=== PATIENT | female | born 1955 | race Caucasian/White ===

== ENCOUNTER 2019-06-18 09:08 | Observation (INO) ==
--- NOTE | 2019-05-20 15:35 | PAT Medication Instructions ---
Medication Instructions Date of Service May 20, 2019 Home Medications aspirin 81 mg tablet,delayed release 81 mg PO QPM lisinopril 5 mg tablet 5 mg PO QAM metformin 1,000 mg tablet 1,000 mg PO BID propranolol 120 mg capsule,24 hr,extended release 120 mg PO QAM rosuvastatin 10 mg tablet 10 mg PO QPM glipizide 5 mg tablet 10 mg PO QAM insulin NPH isoph U-100 human 100 unit/mL (3 mL) subcutaneous pen 8 - 14 units SQ HS cholecalciferol (vitamin D3) [Vitamin D3] 5,000 unit PO WK cyanocobalamin (vitamin B-12) [Vitamin B-12] 1,000 mcg PO 3XWK empagliflozin [Jardiance] 10 mg PO QAM oxycodone-acetaminophen [Percocet] 0.5 - 1 tab PO Q6H PRN DO NOT take the morning of surgery lisinopril 5 mg tablet 5 mg PO QAM metformin 1,000 mg tablet 1,000 mg PO BID glipizide 5 mg tablet 10 mg PO QAM cholecalciferol (vitamin D3) [Vitamin D3] 5,000 unit PO WK cyanocobalamin (vitamin B-12) [Vitamin B-12] 1,000 mcg PO 3XWK empagliflozin [Jardiance] 10 mg PO QAM Take morning of surgery With a small sip of water, OTHERWISE NOTHING TO EAT OR DRINK AFTER MIDNIGHT: propranolol 120 mg capsule,24 hr,extended release 120 mg PO QAM oxycodone-acetaminophen [Percocet] 0.5 - 1 tab PO Q6H PRN (okay to take up to 4 hours prior to surgery if needed) Take evening before surgery aspirin 81 mg tablet,delayed release 81 mg PO QPM metformin 1,000 mg tablet 1,000 mg PO BID rosuvastatin 10 mg tablet 10 mg PO QPM insulin NPH isoph U-100 human 100 unit/mL (3 mL) subcutaneous pen 8 - 14 units SQ HS oxycodone-acetaminophen [Percocet] 0.5 - 1 tab PO Q6H PRN (if needed) Other Notes If you have any questions please call us at [phone] or [phone] or [phone] or [phone]
--- NOTE | 2019-05-24 11:25 | Anesthesiology Consultation ---
Date of Service May 24, 2019 Assessment & Plan (1) Encounter for pre-operative examination: - Awaiting most recent cardiology note/cardiac testing (Dr. Sierra). - Check BSG AM DOS Chart Review Chart Review: Patient seen in Pre Admission Testing Teaching & Discussion Pre-Anesthesia Teaching/Discussion Notes: Instructed NPO after midnight before surgery,except medications with 15 cc of water. Medication instructions provi ded according to the PAT guidelines. History Surgery Operation Date: 06/18/19 13:40 Proposed Procedures p Left Anterior Total Hip Arthroplasty - Darinel Riley DO Height/Weight Height: 5 ft 8.5 in Weight: 69 kg Allergies Allergy/AdvReac Type Severity Reaction Status Date / Time erythromycin base AdvReac Intermediate upset Verified 05/17/19 08:34 stomach Medications Home Medications Medication Instructions Recorded Confirmed Last Taken aspirin 81 mg tablet,delayed 81 mg PO QPM 05/02/19 05/24/19 Unknown release lisinopril 5 mg tablet 5 mg PO QAM 05/02/19 05/24/19 Unknown metformin 1,000 mg tablet 1,000 mg PO BID 05/02/19 05/24/19 Unknown propranolol 120 mg capsule,24 120 mg PO QAM 05/02/19 05/24/19 Unknown hr,extended release rosuvastatin 10 mg tablet 10 mg PO QPM tab 05/02/19 05/24/19 Unknown blood sugar diagnostic #10 ea 05/03/19 05/24/19 Unknown glipizide 5 mg tablet 10 mg PO QAM tab 05/03/19 05/24/19 Unknown insulin NPH isoph U-100 human 100 8 - 14 units SQ HS ml 05/03/19 05/24/19 Unknown unit/mL (3 mL) subcutaneous pen lancets #50 ea 05/03/19 05/24/19 Unknown cholecalciferol (vitamin D3) 5,000 unit PO WK 05/17/19 05/24/19 Unknown [Vitamin D3] cyanocobalamin (vitamin B-12) 1,000 mcg PO 3XWK 05/17/19 05/24/19 Unknown [Vitamin B-12] empagliflozin [Jardiance] 10 mg PO QAM 05/17/19 05/24/19 Unknown oxycodone-acetaminophen [Percocet] 0.5 - 1 tab PO Q6H PRN 05/17/19 05/24/19 Unknown Past Medical History Medical History Atrial fibrillation Chronic back pain Degenerative disc disease Diabetes type 2, controlled IDDM- on lisinopril renal protection Hepatitis A hx (10+ years ago) Mitral valve disease ?MVP- follows with Dr. Sierra Osteoarthritis Exercise / Class Metabolic Activity II 4-5 Yardwork/Stairs/Walk up hill Past Family History Family History Uncle FHx: leukemia Family/Other Family history of diabetes mellitus Mother Family history of diabetes mellitus Other No family history of adverse response to anesthesia Past Surgical History Surgical History History of adenoidectomy History of cardiac cath hx (age 16) to diagnose MVP History of cataract surgery bilateral History of colonoscopy hx of cologuard also History of detached retina repair right History of discectomy with fusion (lumbar) History of tonsillectomy Past Anesthesia History No Hx of Anesthesia Complications and No Family Hx of Anesthesia Complications History of PONV No Hx of PONV and Hx of Motion Sickness (remote hx) Social History Smoking Status: Never smoker Do You Dip or Chew Tobacco: No Hx Alcohol Use: No Hx Substance Use: No substance use type: does not use Review of Systems Patient denies chest pain, shortness of breath, dyspnea on exertion, cough, wheezing, palpitations. Physical Exam Vital Signs VITALS BP 111/53 P 63 TEMP 98.4 SP02 100%RA RESP 18 PHYSICAL Full neck and c-spine range of motion. Full TMJ range of motion. TMD 3 finger breaths Mallampati Score 2 Dentition: intact Lungs: clear throughout to auscultation Cardiac: regular rate and rhythm, no murmurs noted Spine: normal Carotid arteries: negative bruit Extremities: no edema Testing Laboratory Results 05/24/19 11:53 PT 10.2 Seconds (9.0-12.0) 05/24/19 11:53 INR 1.0 (0.9-1.1) 05/24/19 11:53 APTT 24.2 Seconds (21.0-31.0) 05/24/19 11:53 Blood Type O Positive 05/24/19 11:53 Antibody Screen NEGATIVE 05/24/19 11:53 05/03/19 SODIUM 139 POTASSIUM 4.4 CHLORIDE 105 CO2 25 BUN 19 CREATININE 1.03 GLUCOSE 116 HGBA1C 6.1% Electrocardiogram Date: 05/24/19 NSR at 68bpm. NS STA. Chest X-Ray Date: 05/24/19 Findings: + NAD
--- NOTE | 2019-05-24 12:57 | XRay Report ---
XR chest Pre-admission PA/Lat CLINICAL HISTORY: Preoperative chest COMPARISON STUDY: 04/16/2015 FINDINGS: The chest has an emphysematous configuration. There is no failure. There is no focal pulmon george consolidation. There are no pleural effusions. The heart is normal in size.[ IMPRESSION: No active disease in the chest. ACT 112: Negative or not required by law. Electronically signed by: Natalio Chanel M.D. 05/24/2019 12:55 PM
[2019-05-24 13:15] LABS: Basophils # (auto) 0.03 K/uL (0-0.2); Basophils % (auto) 0.3 %; Eosinophils # (auto) 0.15 K/uL (0-0.5); Eosinophils % (auto) 1.7 %; Hematocrit (blood only) 43.8 % (37-47); Hemoglobin 14.6 g/dL (12.0-16.0); Immature Granulocytes # (auto) 0.05 K/uL (0.00-0.02); Immature Granulocytes % (auto) 0.6 %; Lymphocytes # (auto) 2.62 K/uL (1.2-3.4); Lymphocytes % (auto) 29.4 %; Mean Corpuscular Hemoglobin 30.8 pg (25-34); Mean Corpuscular Hgb Conc 33.3 g/dL (32-36); Mean Corpuscular Volume 92.4 fL (80-100); Mean Platelet Volume 10.9 fL (7.4-10.4); Monocytes # (auto) 0.86 K/uL (0.11-0.59); Monocytes % (auto) 9.7 %; Neutrophils % (auto) 58.3 %; Platelet Count 209 K/uL (130-400); RDW Coefficient of Variation 13.2 % (11.5-14.5); RDW Standard Deviation 44.7 fL (36.4-46.3); Red Blood Count 4.74 M/uL (4.2-5.4); White Blood Count 8.91 K/uL (4.8-10.8)
[2019-05-24 13:35] LABS: Partial Thromboplastin Ratio 0.9; Partial Thromboplastin Time 24.2 Seconds (21.0-31.0); Prothrombin Time 10.2 Seconds (9.0-12.0)
--- NOTE | 2019-05-24 20:08 | Electrocardiogram Report ---
Test Reason : Blood Pressure : / mmHG Vent. Rate : 068 BPM Atrial Rate : 068 BPM P-R Int : 146 ms QRS Dur : 084 ms QT Int : 402 ms P-R-T Axes : 048 069 045 degrees QTc Int : 427 ms Normal sinus rhythm Nonspecific ST abnormality Abnormal ECG When compared with ECG of 16-APR-2015 10:10, No significant change was found Confirmed by Neil Parry ([id number]) on 05/24/2019 8:08:40 PM Referred By: Darinel Riley Confirmed By:Delonte Parry
--- NOTE | 2019-06-16 07:24 | History & Physical Report ---
Date of Service June 16, 2019 Assessment & Plan (1) Degenerative joint disease of left hip: We will proceed with a left anterior total hip arthroplasty. Postoperatively she will be kept overnight in the hospital for postoperative medical management. She will be started on insulin for her diabetes and aspirin for DVT prophylaxis. She plans to use energy physical therapy upon discharge. Present on Admission?: Yes History of Present Illness Chief Complaint: Primary osteoarthritis of the left hip Primary Care Provider: Trinh Bower DO Restrepo is a pleasant 63-year-old female who has been dealing with chronic increasing left hip pain. She has a history of a spinal fusion done by Dr. Jessica orozco over 10 years ago. She did well with that. X-rays and clinical examination of the left hip have been diagnostic for advanced osteoarthritis. She has had 2 prior intra-articular hip injections which helped only briefly. After failing conservative treatment, she has elected to proceed with a left anterior total hip arthroplasty. Allergies Allergy/AdvReac Type Severity Reaction Status Date / Time erythromycin base AdvReac Intermediate upset Verified 05/17/19 08:34 stomach Home Medications Home Medications Medication Instructions Recorded Confirmed Type aspirin 81 mg tablet,delayed 81 mg PO QPM 05/02/19 05/24/19 History release lisinopril 5 mg tablet 5 mg PO QAM 05/02/19 05/24/19 History metformin 1,000 mg tablet 1,000 mg PO BID 05/02/19 05/24/19 History propranolol 120 mg capsule,24 120 mg PO QAM 05/02/19 05/24/19 History hr,extended release rosuvastatin 10 mg tablet 10 mg PO QPM tab 05/02/19 05/24/19 History blood sugar diagnostic #10 ea 05/03/19 05/24/19 History glipizide 5 mg tablet 10 mg PO QAM tab 05/03/19 05/24/19 History insulin NPH isoph U-100 human 100 8 - 14 units SQ HS ml 05/03/19 05/24/19 History unit/mL (3 mL) subcutaneous pen lancets #50 ea 05/03/19 05/24/19 History cholecalciferol (vitamin D3) 5,000 unit PO WK 05/17/19 05/24/19 History [Vitamin D3] cyanocobalamin (vitamin B-12) 1,000 mcg PO 3XWK 05/17/19 05/24/19 History [Vitamin B-12] empagliflozin [Jardiance] 10 mg PO QAM 05/17/19 05/24/19 History oxycodone-acetaminophen [Percocet] 0.5 - 1 tab PO Q6H PRN 05/17/19 05/24/19 History Past Med/Surg History Medical History Atrial fibrillation Chronic back pain Degenerative disc disease Diabetes type 2, controlled IDDM- on lisinopril renal protection Hepatitis A hx (10+ years ago) Mitral valve disease ?MVP- follows with Dr. Sierra Osteoarthritis Surgical History History of adenoidectomy History of cardiac cath hx (age 16) to diagnose MVP History of cataract surgery bilateral History of colonoscopy hx of cologuard also History of detached retina repair right History of discectomy with fusion (lumbar) History of tonsillectomy Family History Uncle FHx: leukemia Family/Other Family history of diabetes mellitus Mother Family history of diabetes mellitus Other No family history of adverse response to anesthesia Social History Preferred Language: Macanese Communication Ability: Effective Appeals Assistant Required: No Beliefs That Will Affect Care: None Current Living Situation: Alone Other Information That Helps Us Care for You: No Feels Safe at Home: Yes Safety Concerns: Feels Safe At This Time Smoking Status: Never smoker Do You Dip or Chew Tobacco: No ; Second Hand Exposure: No ; Tobacco Cessation Education Requested by Patient: No Hx Alcohol Use: No Hx Substance Use: No Review of Systems All systems reviewed & are unremarkable except as noted in HPI & below Physical Exam Constitutional: WD/WN, vitals as above Eyes: PERRL, conjunctivae normal, anicteric sclerae ENMT: external ear and nose normal, oropharynx normal Neck: trachea midline, no thyromegaly Respiratory: normal respiratory effort Cardiovascular: RRR, no murmur, no edema Gastrointestinal (Abdomen): normal bowel sounds, soft, nontender, no hepatosplenomegaly Musculoskeletal: Physical examination of the left hip reveals decreased range of motion with flexion, internal and external rotation. There is significant groin pain with forced internal rotation of the hip his leg lengths are essentially equal. Psychiatric: A+Ox3, euthymic affect Results & Data Diagnostic Findings Radiographs of the left hip and pelvis demonstrate advanced osteoarthritis with joint space narrowing osteophyte formation and [id number] articulation.
[~2019-06-18 09:08] MED LIST: ACETAMINOPHEN 500 MG TAB PO SCH; BUPIVACAINE 0.5 % 5 MG/1 ML PF 10ML VIAL ONE; CEFAZOLIN 1000MG 1,000 MG/7.5 ML SYR IV SCH; FAMOTIDINE 20 MG TAB PO SCH; GABAPENTIN 300 MG CAP PO SCH; LR 500ML BOLUS, THEN 15ML/HR IV SCH; LR 60ML/HR IV SCH; ROPIVACAINE 0.5% HCL/PF 150 MG, BUPIVACAINE 0.5% MPF 30 ML, EPINEPHrine 30MG/30ML (OR U... INSTIL SCH; TRANEXAMIC ACID 1,000 MG **IV Intra-op IV SCH; TRANEXAMIC ACID 1,000 MG **IV Pre-op IV SCH; dexAMETHasone 4 MG TAB PO SCH
--- NOTE | 2019-06-18 09:46 | History & Physical Bridge Note ---
Date of Service June 18, 2019 History & Physical Bridge Note I have examined the patient, reviewed the History & Physical and in the interval since the performance of the History & Physical I have noted the following changes of clinical significance: no changes noted
[2019-06-18] MEDS ORDERED: fentaNYL citrate 100 MCG/2 ML VIAL ONE (09:56)
[2019-06-18] MEDS ORDERED: MIDAZOLAM HCL 1 MG/ML 2ML VIAL ONE (09:56)
[2019-06-18] MEDS ORDERED: ORTHO JOINT ANESTHETIC ONE (10:16)
[2019-06-18] MEDS ORDERED: ATROPINE SULFATE 0.1 MG/ML 10ML SYR IV PRN (10:57)
[2019-06-18] MEDS ORDERED: HYDROmorphone INJ 1 MG/ML SYRINGE IV PRN (10:57)
[2019-06-18] MEDS ORDERED: KETOROLAC TROMETHAMINE 15 MG/ML VIAL IV PRN (10:57)
[2019-06-18] MEDS ORDERED: ePHEDrine sulfate 50 MG/ML AMP IV PRN (10:57)
[2019-06-18] MEDS ORDERED: ONDANSETRON INJ 2 MG/ML 2 ML VIAL IV PRN ×2 (10:57→14:41)
--- NOTE | 2019-06-18 12:41 | Operative Report ---
PG Post Operative Report Pre & Post Diagnosis Operation Date: 06/18/19 11:50 Pre-Op Diagnosis: Degenerative joint disease of left hip Post-Op Diagnosis: Degenerative joint disease of left hip I identified the patient and participated in the time-out.: Yes Procedure Operation Date: 06/18/19 11:50 Actual Procedures p Left Anterior Total Hip Arthroplasty(Left) - Darinel Riley DO Surgeon Darinel Riley DO Broadcast Producer Darinel Pascal PAC Estimated Blood Loss 250 Findings Consistent with Post-Op Diagnosis Specimens Left femoral head Complications none Disposition Disposition: Recovery Room Indications Kaye is a pleasant 63-year-old female who presented to my office with chronic increasing left hip and groin pain. X-rays and clinical examination were diagnostic for primary osteoarthritis of the left hip. After failing conservative treatment, she has elected to proceed with a left anterior total hip arthroplasty. Description of Procedure Implants used I used a Biomet Taperloc total hip arthroplasty system with a size 8 high offset Taperloc stem, a 52 mm G7 cup with a 25mm screw, an E1 polyethylene liner, a 36 mm ceramic head with a +0 neck. Kaye arrived at the hospital for the above procedure. She was seen in the preoperative holding area and the operative extremity was identified and signed. She was given a spinal anesthetic, a preoperative antibiotic, and TXA. She was then taken back to the operating room and laid on the table in the supine position. She was given basic sedation. The operative leg was secured to a Puristst leg positioner. The hip was then prepped and draped in sterile fashion. A timeout was done and the patient and the operative extremity was properly identified. An anterior approach was used. Dissection was taken down through the fascia and the tensor muscle belly was retracted laterally and the rectus was retracted medially. The circumflex vessels were identified and ligated. The capsule was then incised and tagged for later repair. The femoral neck was then cut and the femoral head was removed. The acetabulum was exposed. Time was spent doing a complete circumferential labral release. Sequential reaming of the acetabulum up to a size 51 reamer was done. Final reamings were done under fluoroscopy to ensure appropriate version. A Biomet 52 mm G7 cup was then impacted into place. A single 25 mm screw was placed. The E1 polyethylene liner was then snapped into place. Surrounding soft tissues were then injected with 100 cc of an orthopedic pain control cocktail. The proximal femur was then exposed. Sequential broaching up to a size 8 broach was done. Off that broach a size 36 head with a +0 neck was trialed. The hip was reduced and fluoroscopic images showed anatomic alignment of the implants in acceptable length. The broach was removed. The final size 8 high offset Taperloc stem was then impacted into place. A ceramic 36 mm head with a +0 neck was then impacted onto the stem and the hip was reduced. Final fluoroscopic images showed anatomic alignment of the hip. The capsule was then closed with #1 Vicryl suture. A dilute betadyne lavage was then done for 3 minutes. The joint was then irrigated with normal saline solution. The fascia was closed with #1 PDS suture. Skin was closed with 2-0 Vicryl, anjali, and a Gina VAC dressing. She was then transferred to a hospital bed and taken to the post anesthesia care unit in stable condition. She tolerated the procedure well. I attest to the content of the Intraoperative Record and any orders documented therein. Any exceptions are noted below.
--- NOTE | 2019-06-18 12:54 | Fluoroscopy Report ---
FL hip LT 1V CLINICAL HISTORY: LT ANTERIOR TOTAL HIP ARTHROPLASTY COMPARISON STUDY: FLUOROSCOPY TIME: 18 seconds. NUMBER OF FLUOROSCOPIC IMAGES: 1 FINDINGS: A single intraoperative fluoroscopic spot image reveals postsurgical changes of a total lef t hip arthroplasty. No dislocation is evident. IMPRESSION: Intraoperative fluoroscopic spot image demonstrating a total left hip arthroplasty. ACT 112: Negative or not required by law. Electronically signed by: Natalio Chanel M.D. 06/18/2019 12:53 PM
--- NOTE | 2019-06-18 13:31 | XRay Report ---
XR hip 1V LT w pelvis CLINICAL HISTORY: 63 years-old Female presenting with IN PACU - A/P PELVIS and LATERAL HIP . TECHNIQUE: Single frontal view of the pelvis and crosstable lateral view of the left hip were obtaine d. COMPARISON: 10/01/2018. FINDINGS: There has been interval total left hip arthroplasty. Overlying skin anjali. Surgical drain in place. Expected soft tissue emphysema. There is also extraperitoneal pelvic emphysema noted. No malalignmen t. No periprosthetic fracture or lucency. Visualized portion of the pelvis intact with notable exclus ion of the iliac wings. Right hip joint congruent with mild superior predominant joint space loss and moderate osteophytosis noted. IMPRESSION: Expected postsurgical changes status post total left hip arthroplasty. ACT 112: Negative or not required by law. Electronically signed by: Brendan Keyes M.D. 06/18/2019 1:29 PM
--- NOTE | 2019-06-18 13:51 | Anesthesiology Progress Note ---
Date of Service June 18, 2019 Anesthesia Post Procedure Vital Signs Vital Signs: Temp Pulse Pulse Resp BP Pulse Ox 06/18/19 13:45 71 13 123/66 100 06/18/19 13:35 36.3 C L 67 12 108/52 L 100 06/18/19 13:25 73 18 102/41 L 97 06/18/19 13:15 74 14 94/49 L 99 06/18/19 13:08 36.7 C 82 18 107/60 98 06/18/19 09:40 37.3 C 74 16 133/63 99 Transfer of Care Handoff Completed per policy Notes Mental Status: alert / awake / arousable Patient Amnestic to Procedure: Yes Nausea / Vomiting: adequately controlled Pain: adequately controlled Airway Patency, RR, SpO2: stable & adequate BP & HR: stable & adequate Hydration State: stable & adequate Anesthetic Complications: no major complications apparent
[2019-06-18] MEDS ORDERED: PROPOFOL IV EMULSION 10 MG/ML 20 ML VIAL IV ONE (14:01)
[2019-06-18] MEDS ORDERED: NALOXONE HCL 0.4 MG/1 ML VIAL/CARP IV PRN (14:41)
[2019-06-18] MEDS ORDERED: HYDROmorphone INJ 0.5 MG/0.5 ML SYR IV PRN (14:41)
[2019-06-18] MEDS ORDERED: MAGNESIUM HYDROXIDE SUSP 30 ML UDC PO PRN (14:41)
[2019-06-18] MEDS ORDERED: bisacodyL 10 MG SUPP PR PRN (14:41)
[2019-06-18] MEDS ORDERED: OXYCODONE HCL IR 5 MG TAB (IMMEDIATE RELEASE) PO PRN (14:41)
[2019-06-18] MEDS ORDERED: METOCLOPRAMIDE HCL INJ 5 MG/ML 2 ML VIAL IV PRN (14:41)
[2019-06-18] MEDS ORDERED: PHARMACY GLYCEMIC MGMT CONSULT PRN (15:01)
--- NOTE | 2019-06-18 15:27 | Pharmacy Report ---
Glycemic Control Consultation - Date of Service June 18, 2019 - Scope Scope: Glycemic Pharmacist consulted by Darinel Pascal on 06/18 for glycemic control and to write orders per [facility] inpatient glycemic control protocol - Objective Weight: 69.1 kg Accuchecks BSG (last 24hrs): 06/18/19 06/18/19 10:01 13:30 POC Glucose 149 H 155 H - Recent Pertinent Medications Outpatient Anti-diabetic Regimen: * Humulin N 8-14 units (patient self adjusts at home / doesn't use a scale), Jardiance, metformin, glipizide * A1c = 6.1 % 05/03/19 Risk Factors for Insulin Resistance: * Steroids: DXM po * Recent Surgery: POD 0 * Diet: T2DM - Assessment & Plan Assessment & Plan: ASSESSMENT: * 63 year old female now s/p hip arthroplasty. Type 2 diabetic - managed on NPH at home. Talked with patient and she self adjusts her home insulin based upon what she eats. Does not have specific parameters. States typically in AM her BSGs at home are ~100s and HS they are usually higher but still <200 most of the time. States she does not have low BSGs<70 very often * Patient did receive dexamethasone preop - therefore anticipate steroid induced hyperglycemia; will utilize basal/bolus postop PLAN FOR INPATIENT GLYCEMIC CONTROL: * Holding outpatient oral diabetes medications * Basal insulin * NPH 15 units with dinner today (~0.2 units/kg) * Bolus insulin * NovoLog per scale ACHS or Q6hrs while NPO * Goal Range: Low 110 mg/dL - High 140 mg/dL * Correction Factor: 30 mg/dL/unit * Nutritional / Prandial insulin per carb ratio of 1 unit per 9 grams CHO consumed * Please note that the plan above was derived based on current level of insulin resistance and hospital stress. These recommendations are appropriate for inpatient admission only. Plan of care upon discharge will need to be reassessed to avoid potential outpatient hypo/hyperglycemia. Thank you.
[2019-06-18] MEDS ORDERED: GLUCOSE 40% GEL 15 GM TUBE PO PRN (15:30)
[2019-06-18] MEDS ORDERED: GLUCAGON FOR INJ 1 MG VIAL IM PRN (15:30)
[2019-06-18] MEDS ORDERED: GLUCOSE 10 TABS/TUBE PO PRN (15:30)
[2019-06-18] MEDS ORDERED: CARBOHYDRATES FOR HYPOGLYCEMIA PO PRN (15:30)
[2019-06-18] MEDS ORDERED: DEXTROSE 50% 50 ML SYRINGE IV PRN (15:30)
[2019-06-18] MEDS: KETOROLAC 30 MG/ML VIAL IV SCH ×2 (15:43→21:30)
[2019-06-18] MEDS ORDERED: ACETAMINOPHEN 500 MG TAB PO SCH (16:00)
[2019-06-18] MEDS: SODIUM CHLORIDE 0.9% 1000ML 1,000 ML IV SCH (16:15)
[2019-06-18] MEDS: INSULIN ASPART 100 UNITS/ML 3 ML PEN SC SCH ×4 (16:22→23:49)
[2019-06-18] MEDS ORDERED: INSULIN HUMAN NPH SC ONE (17:00)
[2019-06-18] MEDS: CEFAZOLIN 2000MG 2,000 MG/15 ML SYR IV SCH (18:52)
[2019-06-18] MEDS ORDERED: SENNA 8.6 MG TAB PO SCH (21:00)
[2019-06-18] MEDS ORDERED: ROSUVASTATIN CALCIUM 10 MG TAB PO SCH (21:00)
[2019-06-18] MEDS: DOCUSATE SODIUM 100 MG CAP PO SCH (21:29)
[2019-06-18] MEDS: ASPIRIN 81 MG ECTAB PO SCH (21:30)
[2019-06-18] MEDS: HYDROCODONE/ACETAMOPHEN 5/325MG TAB PO PRN (23:41)
[2019-06-19] MEDS: KETOROLAC 30 MG/ML VIAL IV SCH ×2 (03:54→10:06)
[2019-06-19] MEDS: CEFAZOLIN 2000MG 2,000 MG/15 ML SYR IV SCH (03:55)
[2019-06-19] MEDS: INSULIN ASPART 100 UNITS/ML 3 ML PEN SC SCH ×3 (04:10→12:37)
[2019-06-19] MEDS: SODIUM CHLORIDE 0.9% 1000ML 1,000 ML IV SCH (04:14)
[2019-06-19 06:02] LABS: Basophils # (auto) 0.01 K/uL (0-0.2); Basophils % (auto) 0.1 %; Hematocrit (blood only) 33.2 % (37-47); Hemoglobin 11.3 g/dL (12.0-16.0); Immature Granulocytes # (auto) 0.03 K/uL (0.00-0.02); Immature Granulocytes % (auto) 0.2 %; Lymphocytes # (auto) 1.03 K/uL (1.2-3.4); Lymphocytes % (auto) 8.1 %; Mean Corpuscular Hemoglobin 30.5 pg (25-34); Mean Corpuscular Volume 89.7 fL (80-100); Mean Platelet Volume 10.7 fL (7.4-10.4); Monocytes # (auto) 1.21 K/uL (0.11-0.59); Monocytes % (auto) 9.6 %; Neutrophils # (auto) 10.38 K/uL (1.4-6.5); Platelet Count 167 K/uL (130-400); RDW Coefficient of Variation 12.8 % (11.5-14.5); RDW Standard Deviation 41.8 fL (36.4-46.3); White Blood Count 12.66 K/uL (4.8-10.8)
[2019-06-19 06:35] LABS: BUN Creatinine Ratio 29.2 (10-20); Calcium 8.4 mg/dl (8.5-10.1); Est GFR (African American) 67.7; Est GFR (Non-African American) 58.4; Potassium 4.2 mmol/L (3.5-5.1)
--- NOTE | 2019-06-19 07:01 | Orthopedic Progress Note ---
Date of Service June 19, 2019 Assessment & Plan (1) History of left hip replacement: Overall she is doing very well. She is not having much pain in the left hip. We are still waiting for the nerve block to wear off the rest of the way. She will be seen by physical therapy today for ambulation and range of motion exercises. She is on aspirin for DVT prophylaxis. She can be discharged home later today. She will follow-up with orthopedics in 2 weeks. Present on Admission?: Yes Subjective Kaye was seen and examined at bedside this morning. Overall she is doing very well. She is having much pain in the left hip. The nerve block is still working a little bit. She is unable to dorsiflex her left ankle. She was able to get some sleep last night. She has no complaints. Physical Exam Musculoskeletal: On physical examination of the left hip, the Gina VAC dressing is to suction. Her leg lengths are equal. She is unable to actively dorsiflex her left ankle. She does have numbness still extending down her left leg. She is able to contract her quadriceps. Results & Data ([facility]) Vital Signs (Past 12 Hours) Vital Signs Temp Pulse Resp BP Pulse Ox 06/19/19 03:56 37 C 72 16 107/58 L 99 06/18/19 23:09 36.7 C 63 16 106/65 98 06/18/19 19:50 37.0 C 66 18 127/77 99 Laboratory Results H & H 05/24/19 06/19/19 Range/Units 11:53 05:05 Hgb 14.6 11.3 L (12.0-16.0) g/dL Hct 43.8 33.2 L (37-47) % Coagulation 05/24/19 Range/Units 11:53 INR 1.0 (0.9-1.1) Diagnostic Findings Postoperative x-rays of the left hip show the prosthesis to be in anatomic alignment without any evidence of fracture, dislocation, or loosening. PG Care Time/CCT Total # of Minutes Spent Total Time Spent with Patient: Total time spent is greater than 50% in coordination of care (as documented) at patient's floor/unit and/or counseling patient: Coding Level of Care Code None Diagnoses History of left hip replacement Z96.642
--- NOTE | 2019-06-19 07:02 | Discharge Summary ---
Date of Service June 19, 2019 Admission HPI Per Admitting Provider Kaye is a pleasant 63-year-old female who has been dealing with chronic increasing left hip pain. She has a history of a spinal fusion done by Dr. Greer over 10 years ago. She did well with that. X-rays and clinical examination of the left hip have been diagnostic for advanced osteoarthritis. She has had 2 prior intra-articular hip injections which helped only briefly. After failing conservative treatment, she has elected to proceed with a left anterior total hip arthroplasty. Principal Diagnosis Left total hip arthroplasty Discharge Data Allergies Allergy/AdvReac Type Severity Reaction Status Date / Time erythromycin base AdvReac Intermediate upset Verified 06/18/19 09:37 stomach Consultations 06/19/19 08:00 Consult Case Management - Discharge Planning Routine Procedures Performed Operation Date: 06/18/19 11:50 Actual Procedures p Left Anterior Total Hip Arthroplasty(Left) - Darinel Riley DO Ordered Studies 06/18/19 11:50 FL fluoroscopy <1hr Routine FL hip LT 1V Routine Hospital Course (1) History of left hip replacement: On June 18, 2019 Kaye arrived at [facility] and underwent a left anterior total hip arthroplasty without complication. She had a spinal anesthetic. Postoperatively she was started on aspirin for DVT prophylaxis and transferred to the general orthopedic floors. Her hospital course was uneventful. On postop day #1 her H&H was stable and her pain was well controlled. She was able to participate well with physical therapy doing ambulation and range of motion exercises. It took a little while for the nerve block to wear off, but when it did, she was discharged home. She will follow-up with orthopedics in 2 weeks. Total Time Total Time Spent Total Time Spent (In Minutes): 20 Discharge Plan Discharge Items Patient Disposition: Home - Home Health Services Reason For Visit: LEFT HIP DEGENERATIVE JOINT DISEASE Discharge Diagnosis: Left total hip arthroplasty Activity: As commented below Non-emergency contact: Surgeon Call non-emergency contact if: your wound has increased redness and your wound has increased drainage Follow-up/Referrals: Trinh Bower DO [Primary Care Provider] - Diet: Carb Consistent or DM2 Addtl Attending Provider Instructions: Activity and Therapy Recommendations: * If you are using [facility] then therapy will be provided at your home until they feel you have accomplished all of your goals. * If you are using [facility] then Physical Therapy will be provided until they feel you are ready to start Outpatient Physical Therapy. * If you are not using home therapy then Outpatient Physical Therapy should start about 3-5 days from your day of surgery. Therapy will last about 6-10 weeks * You were shown a series of exercises in the hospital. Do these exercises three times each day including the exercises you were shown in physical therapy. * Get up and walk several times each day.~ For the first four weeks, try not to stand or walk for more than one hour at a time. If you do stand or walk for more than one hour, you will not hurt anything, but your leg will likely swell.~~ * As you feel comfortable, you may change from the walker or crutches to a cane and~then to independent walking. Medications: * Narcotic You will likely be sent home from the hospital with a prescription for the narcotic pain medication that worked best throughout your stay. * Aspirin Most patients will be required to take Aspirin 81mg twice a day for 6 weeks after surgery. This is obtained [id number] and a prescription is not necessary. * Other medications may be prescribed for specific circumstances. If you have any questions, please call the office at . * Resume previous home medications unless otherwise instructed TEDs/Elastic Stockings: The white elastic stockings help limit swelling and prevent blood clots from forming in your legs. The more you wear them, the more they work. Wear them for six weeks. Dressing Care: You will likely have a purple VAC dressing after surgery. This dressing will keep the incision dry and promote early healing. After about 7 days the batteries will wear out and the VAC will lose suction. Simply remove the dressing at that time and throw everything away, including the small suction machine. Then, you may leave the anjali open to air or cover them with a dry dressing so they do not rub on your pants. The anjali will be removed at your 2 week follow-up appointment. Showering: You may shower immediately with the purple VAC dressing. Let the shower spray hit your opposite side and slowly pat the plastic dry. Do not soak the dressing. After the dressing is removed you may shower normally with the anjali exposed. Let soapy water run over the anjali and pat them dry. Things To Watch For: * Drainage from the incision site that occurs more than one week after your surgery. * Increased redness at the incision site. * Fever above 102 degrees Fahrenheit. * Unusual chest pain or shortness of breath. * Call [facility] at with any of the above problems Follow-Up Visit: Follow-up with Dr. Riley 2-3 weeks after your day of surgery. An appointment was probably scheduled when you signed-up for surgery in the [facility]. If you have any questions call Office Instructions: More detailed instructions as well as Frequently Asked Questions were provided in a folder by our office when you signed-up for surgery. Please review these instructions when you get home. If you have any further questions or concerns, please feel free to call the office at [phone] Pending Studies at Discharge: No Stand-Alone Forms: [facility] Embedly, Smoking Cessation Medications and DC Order Prescriptions: New hydrocodone-acetaminophen [Devon] 5-325 mg tablet 1 tab PO Q6H PRN (Reason: pain) Qty: 30 RF: 0 Continued metformin 1,000 mg tablet 1,000 mg PO BID RF: 0 lisinopril 5 mg tablet 5 mg PO QAM RF: 0 propranolol 120 mg capsule,extended release 24 hr 120 mg PO QAM RF: 0 rosuvastatin [Crestor] 10 mg tablet 10 mg PO QPM RF: 0 glipizide 5 mg tablet 10 mg PO QAM RF: 0 (DME) OneTouch Ultra Blue Test Strip strip See Rx Instructions .ROUTE .MEDSUPPLY Qty: 10 RF: 0 (DME) lancets [OneTouch UltraSoft Lancets] misc See Rx Instructions .ROUTE .MEDSUPPLY Qty: 50 RF: 0 Humulin N NPH Insulin KwikPen 100 unit/mL (3 mL) insulin pen 8 - 14 units SQ HS RF: 0 Jardiance 10 mg tablet 10 mg PO QAM RF: 0 cyanocobalamin (vitamin B-12) [Vitamin B-12] 1,000 mcg Tablet 1,000 mcg PO 3XWK RF: 0 cholecalciferol (vitamin D3) [Vitamin D3] 125 mcg (5,000 unit) Tablet 5,000 unit PO WK RF: 0 Changed aspirin [Adult Aspirin Regimen] 81 mg tablet,delayed release (DR/EC) 81 mg PO BID 42 Days Qty: 0 RF: 0 Discontinued oxycodone-acetaminophen [Percocet] 5-325 mg tablet 0.5 - 1 tab PO Q6H PRN (Reason: pain) RF: 0 Discharge Orders: Discharge Order (Routine); Ordered 06/19/19 Ordered By: Darinel Riley Admission Data Admit Date/Time: 06/18/19 13:13 Attending Provider: Darinel Riley Admit Provider: Darinel Riley Primary Care Provider: Trinh Bower Coding Level of Care Code D/C Day Management <30 mins Diagnoses History of left hip replacement Z96.642
[2019-06-19] MEDS: ASPIRIN 81 MG ECTAB PO SCH (08:40)
[2019-06-19] MEDS: DOCUSATE SODIUM 100 MG CAP PO SCH (08:40)
[2019-06-19] MEDS ORDERED: PROPRANOLOL HCL 60 MG LA CAP PO SCH (09:00)
[2019-06-19] MEDS ORDERED: lisinopriL 5 MG TAB PO SCH (09:00)
[2019-06-19] MEDS ORDERED: MULTIVITAMIN TAB PO SCH (09:00)
[2019-06-19] MEDS: HYDROCODONE/ACETAMOPHEN 5/325MG TAB PO PRN (12:45)
== END 2019-06-19 14:20 | disposition home or self-care (01) ==
LOC: ASU 09:08 → 3E 09:08